=== PATIENT | female | born 2000 | race African-American/Black ===

== ENCOUNTER 2019-10-26 12:07 | Emergency (ER) | payer MEDICAID ==
[~2019-10-26] VITALS: Ht 175.3 cm; Wt 87.8 kg
[2019-10-26] MEDS ORDERED: IBUPROFEN 600MG TABLET PO STA (13:48)
[2019-10-26 14:14] VITALS: BP 123/74
== END 2019-10-26 15:39 | disposition home or self-care (01) ==
LOC: ER 12:15
DX: S39.012A Strain of muscle, fascia and tendon of lower back, initial encounter (principal); V43.52XA Car driver injured in collision with other type car in traffic accident, initial encounter; Y93.89 Activity, other specified; Y92.488 Other paved roadways as the place of occurrence of the external cause
CPT/HCPCS: 72100; 99283